=== PATIENT | female | born 1955 ===

== ENCOUNTER 2023-07-28 19:08 | Inpatient (IN) ==
[2023-07-28] MEDS ORDERED: Propofol 10 mg/ml 100 ML BTL 1,000 MG/100 ML BTL ONE (21:35)
[2023-07-28] MEDS: Propofol 10 mg/ml 100 ML BTL 1,000 MG/100 ML BTL IV SCH (21:40)
[2023-07-28 22:35] LABS: ABS Basophils 0.1 10^3/uL (0.0-0.1); ABS Eosinophils 0.1 10^3/uL (0.0-0.5); ABS Lymphocytes 1.3 10^3/uL (1.0-4.8); ABS Monocytes 0.4 10^3/uL (0.0-0.9); Eosinophil % 2.8 %; Hematocrit 25.9 % (35-45); Hemoglobin 9.1 g/dL (11.5-14.3); Mean Corpuscular Hemoglobin 35.7 pg (27-33); Mean Platelet Volume 9.2 fL (7.5-11.2); Nucleated Red Blood Cells % 0.1 %/100WBC (0.0-0.8); Platelet Count 169 10^3/uL (150-450); Red Blood Count 2.54 10^6/uL (3.63-4.92); Red Cell Distribution Width 13.5 % (12-17); White Blood Count 4.8 10^3/uL (3.8-11.8)
[2023-07-28 22:56] LABS: Albumin/Globulin Ratio 1.3 (1-3); Calcium 8.4 mg/dL (8.6-10.3); Creatinine, Serum 0.7 mg/dL (0.51-0.95); Globulin 2.4 g/dL (2-4); Magnesium 1.4 mg/dL (1.9-2.7); Potassium 2.8 mmol/L (3.5-5.0); Total Bilirubin 0.5 mg/dL (0.2-1.0); Total Protein 5.4 g/dL (6.4-8.9); eGFR CKD-EPI 94.7 (>60)
[2023-07-28 23:29] LABS: Resp Rate 16
[2023-07-28 23:30] LABS: PCO2 Arterial 30 mmHg (35-45); PO2 Arterial 85 mmHg (80-100)
[2023-07-28 23:41] LABS: TSH Ultra Thyroid Stim Horm 3.49 mcIU/mL (0.34-5.60)
[2023-07-29] MEDS ORDERED: Remdesivir 100 mg Vial 200 MG in NS 0.9% 250 ml 210 ML IV ONE (01:55)
[2023-07-29] MEDS ORDERED: Dextrose 50% Syringe 50 ml 25 GM/50 ML SYRINGE IV PUSH PRN (01:58)
[2023-07-29] MEDS ORDERED: Albuterol HFA INHALER 8 gm MDI INH PRN (02:02)
[2023-07-29] MEDS: Propofol 10 mg/ml 100 ML BTL 1,000 MG/100 ML BTL IV SCH ×6 (02:12→21:24)
[2023-07-29 03:22] LABS: Albumin 2.9 g/dL (3.2-5.2); Albumin/Globulin Ratio 1.2 (1-3); Calcium 8.3 mg/dL (8.6-10.3); Creatinine, Serum 0.71 mg/dL (0.51-0.95); Globulin 2.5 g/dL (2-4); Potassium 2.8 mmol/L (3.5-5.0); Total Bilirubin 0.4 mg/dL (0.2-1.0); Total Protein 5.4 g/dL (6.4-8.9); eGFR CKD-EPI 93.1 (>60)
[2023-07-29 03:28] LABS: INR 1.14 (0.83-1.13)
[2023-07-29 04:21] LABS: ABS Eosinophils 0.2 10^3/uL (0.0-0.5); ABS Lymphocytes 1.1 10^3/uL (1.0-4.8); ABS Monocytes 0.4 10^3/uL (0.0-0.9); Eosinophil % 3.4 %; Hematocrit 25.4 % (35-45); Hemoglobin 8.8 g/dL (11.5-14.3); Mean Corpuscular Hemoglobin 35.5 pg (27-33); Mean Corpuscular Hgb Conc 34.8 g/dL (31-36); Mean Corpuscular Volume 101.8 fL (80-97); Mean Platelet Volume 9.1 fL (7.5-11.2); Nucleated Red Blood Cells % 0.1 %/100WBC (0.0-0.8); Platelet Count 151 10^3/uL (150-450); Red Cell Distribution Width 13.5 % (12-17); White Blood Count 4.7 10^3/uL (3.8-11.8)
[2023-07-29 04:42] LABS: Albumin 2.8 g/dL (3.2-5.2); Albumin/Globulin Ratio 1.2 (1-3); Calcium 8.2 mg/dL (8.6-10.3); Creatinine, Serum 0.65 mg/dL (0.51-0.95); Globulin 2.3 g/dL (2-4); Magnesium 1.4 mg/dL (1.9-2.7); Potassium 2.8 mmol/L (3.5-5.0); Total Bilirubin 0.4 mg/dL (0.2-1.0); Total Protein 5.1 g/dL (6.4-8.9); eGFR CKD-EPI 96.4 (>60)
[2023-07-29] MEDS: Levothyroxine 100 MCG/5 ML VIAL IV SCH (05:17)
[2023-07-29] MEDS ORDERED: Heparin 5000 UNITS/ML 1 mL VIAL SUBCUT SCH (06:00)
[2023-07-29] MEDS: Mometasone/Formoter 100/5 MDI INH SCH ×2 (07:04→19:06)
[2023-07-29] MEDS ORDERED: Magnesium Sulfate 2 gm BAG 2 GM/50 ML BAG IVPB ONE (07:40)
[2023-07-29] MEDS: KCL 20 MEQ/100 ML IVPREMIX 20 MEQ/100 ML BAG IV SCH ×2 (08:14→10:22)
[2023-07-29] MEDS: levETIRAcetam IV 1,500 MG in NS 0.9% 100 ml BAG 100 ML IVPB SCH ×2 (08:57→20:07)
[2023-07-29] MEDS: Chlorhexidine MOUTHWASH 0.12% 15 ML UDC TOPICAL SCH ×5 (09:16→19:22)
[2023-07-29] MEDS: Furosemide 20 mg/2 ml IV VIAL IV SLOW PU SCH (09:16)
[2023-07-29] MEDS: Pantoprazole VIAL 40 MG VIAL IV SCH (09:17)
[2023-07-29] MEDS: Enoxaparin 80 MG/0.8 ML SYR SUBCUT SCH ×2 (09:17→20:07)
[2023-07-29] MEDS ORDERED: Lorazepam PYXIS KEY PRN (09:26)
[2023-07-29] MEDS ORDERED: LORazepam 2 mg VIAL 1 ml IV PUSH PRN (09:26)
[2023-07-29] MEDS ORDERED: LORazepam 2 mg VIAL 1 ml IV PUSH ONE (09:27)
[2023-07-29] MEDS ORDERED: LaCOSAMide VIAL 200 MG in NS 0.9% 50 ML 50 ML IV ONE (14:11)
[2023-07-30] MEDS: Propofol 10 mg/ml 100 ML BTL 1,000 MG/100 ML BTL IV SCH ×2 (02:04→05:33)
[2023-07-30] MEDS: Chlorhexidine MOUTHWASH 0.12% 15 ML UDC TOPICAL SCH ×4 (02:45→12:33)
[2023-07-30] MEDS: LaCOSAMide VIAL 100 MG in NS 0.9% 50 ML 50 ML IV SCH ×2 (03:13→14:36)
[2023-07-30 04:54] LABS: INR 1.17 (0.83-1.13)
[2023-07-30 04:58] LABS: Albumin 2.9 g/dL (3.2-5.2); Albumin/Globulin Ratio 1.2 (1-3); Calcium 8.2 mg/dL (8.6-10.3); Creatinine, Serum 0.79 mg/dL (0.51-0.95); Globulin 2.4 g/dL (2-4); Potassium 3.2 mmol/L (3.5-5.0); Total Bilirubin 0.3 mg/dL (0.2-1.0); Total Protein 5.3 g/dL (6.4-8.9); eGFR CKD-EPI 81.4 (>60)
[2023-07-30] MEDS: Levothyroxine 100 MCG/5 ML VIAL IV SCH (05:58)
[2023-07-30] MEDS: levETIRAcetam IV 1,500 MG in NS 0.9% 100 ml BAG 100 ML IVPB SCH ×2 (08:43→20:08)
[2023-07-30] MEDS: KCL 20 MEQ/100 ML IVPREMIX 20 MEQ/100 ML BAG IV SCH ×4 (08:46→17:47)
[2023-07-30] MEDS: Pantoprazole VIAL 40 MG VIAL IV SCH (08:49)
[2023-07-30] MEDS: Enoxaparin 80 MG/0.8 ML SYR SUBCUT SCH (08:49)
[2023-07-30] MEDS: Furosemide 20 mg/2 ml IV VIAL IV SLOW PU SCH (08:49)
[2023-07-30] MEDS: Mometasone/Formoter 100/5 MDI INH SCH (09:33)
[2023-07-30] MEDS: Remdesivir 100 mg Vial 100 MG in NS 0.9% 250 ml 230 ML IV SCH (20:45)
[2023-07-30 22:57] LABS: Calcium 8.5 mg/dL (8.6-10.3); Creatinine, Serum 0.72 mg/dL (0.51-0.95)
[2023-07-31] MEDS: LaCOSAMide VIAL 100 MG in NS 0.9% 50 ML 50 ML IV SCH ×2 (02:43→14:52)
[2023-07-31 05:22] LABS: ABS Eosinophils 0.1 10^3/uL (0.0-0.5); ABS Lymphocytes 0.9 10^3/uL (1.0-4.8); ABS Monocytes 0.5 10^3/uL (0.0-0.9); ABS Neutrophils 3.8 10^3/uL (1.5-7.6); Eosinophil % 2.5 %; Hematocrit 26.6 % (35-45); Hemoglobin 9.3 g/dL (11.5-14.3); Lymphocyte % 16.6 %; Mean Corpuscular Hemoglobin 36.1 pg (27-33); Mean Platelet Volume 9.1 fL (7.5-11.2); Platelet Count 173 10^3/uL (150-450); Red Blood Count 2.59 10^6/uL (3.63-4.92); Red Cell Distribution Width 13.9 % (12-17); White Blood Count 5.4 10^3/uL (3.8-11.8)
[2023-07-31] MEDS: Ondansetron 4 mg VIAL 2 MG/ML 2 ml VIAL IV PRN ×2 (05:50→16:45)
[2023-07-31 05:56] LABS: INR 1.16 (0.83-1.13)
[2023-07-31 05:59] LABS: Albumin/Globulin Ratio 1.1 (1-3); Calcium 8.4 mg/dL (8.6-10.3); Creatinine, Serum 0.66 mg/dL (0.51-0.95); Globulin 2.7 g/dL (2-4); Magnesium 1.5 mg/dL (1.9-2.7); Potassium 3.5 mmol/L (3.5-5.0); Total Bilirubin 0.5 mg/dL (0.2-1.0); Total Protein 5.7 g/dL (6.4-8.9); eGFR CKD-EPI 95.5 (>60)
[2023-07-31] MEDS: Levothyroxine 100 MCG/5 ML VIAL IV SCH (06:54)
[2023-07-31] MEDS ORDERED: Magnesium Sulfate 2 gm BAG 2 GM/50 ML BAG IVPB ONE (08:30)
[2023-07-31] MEDS: Furosemide 20 mg/2 ml IV VIAL IV SLOW PU SCH (09:01)
[2023-07-31] MEDS: Enoxaparin 40 MG/0.4 ML SYR SUBCUT SCH (09:01)
[2023-07-31] MEDS: levETIRAcetam IV 1,500 MG in NS 0.9% 100 ml BAG 100 ML IVPB SCH ×2 (09:02→19:53)
[2023-07-31] MEDS ORDERED: Dextrose 50% Syringe 50 ml 25 GM/50 ML SYRINGE IV PUSH PRN (20:09)
[2023-07-31] MEDS: Remdesivir 100 mg Vial 100 MG in NS 0.9% 250 ml 230 ML IV SCH (21:36)
[2023-08-01] MEDS: LaCOSAMide VIAL 100 MG in NS 0.9% 50 ML 50 ML IV SCH ×2 (01:40→16:27)
[2023-08-01 05:47] LABS: INR 1.22 (0.83-1.13)
[2023-08-01 06:07] LABS: Albumin 3.2 g/dL (3.2-5.2); Albumin/Globulin Ratio 1.1 (1-3); Calcium 8.9 mg/dL (8.6-10.3); Creatinine, Serum 0.65 mg/dL (0.51-0.95); Globulin 2.8 g/dL (2-4); Magnesium 1.8 mg/dL (1.9-2.7); Potassium 3.3 mmol/L (3.5-5.0); Total Bilirubin 0.4 mg/dL (0.2-1.0); eGFR CKD-EPI 95.8 (>60)
[2023-08-01] MEDS ORDERED: Magnesium Sulfate 2 gm BAG 2 GM/50 ML BAG IVPB ONE (08:28)
[2023-08-01] MEDS: levETIRAcetam IV 1,500 MG in NS 0.9% 100 ml BAG 100 ML IVPB SCH ×2 (09:12→22:25)
[2023-08-01] MEDS: Enoxaparin 40 MG/0.4 ML SYR SUBCUT SCH (09:16)
[2023-08-01] MEDS: Potassium Chlor 20 meq TAB.ER PO SCH ×3 (09:17→15:13)
[2023-08-01] MEDS ORDERED: Potassium EFFERVES 25 meq TAB PO ONE (15:30)
[2023-08-01] MEDS: Ondansetron 4 mg VIAL 2 MG/ML 2 ml VIAL IV PRN (18:09)
[2023-08-01] MEDS: Remdesivir 100 mg Vial 100 MG in NS 0.9% 250 ml 230 ML IV SCH (22:25)
[2023-08-02] MEDS: LaCOSAMide VIAL 100 MG in NS 0.9% 50 ML 50 ML IV SCH (03:14)
[2023-08-02 07:34] LABS: INR 1.39 (0.83-1.13)
[2023-08-02 08:16] LABS: Albumin/Globulin Ratio 1.3 (1-3); Calcium 8.8 mg/dL (8.6-10.3); Creatinine, Serum 0.63 mg/dL (0.51-0.95); Globulin 2.3 g/dL (2-4); Magnesium 1.8 mg/dL (1.9-2.7); Potassium 3.7 mmol/L (3.5-5.0); Total Bilirubin 0.5 mg/dL (0.2-1.0); Total Protein 5.3 g/dL (6.4-8.9); eGFR CKD-EPI 96.6 (>60)
[2023-08-02] MEDS ORDERED: Albuterol HFA INHALER 8 gm MDI INH PRN (09:34)
[2023-08-02] MEDS: CMC:Ranolazine 500 mg TAB ER (NF) PO SCH ×2 (10:26→22:06)
[2023-08-02] MEDS: Ondansetron 4 mg VIAL 2 MG/ML 2 ml VIAL IV PRN (17:34)
[2023-08-02] MEDS: levETIRAcetam IV 1,500 MG in NS 0.9% 100 ml BAG 100 ML IVPB SCH (19:49)
[2023-08-02] MEDS: Remdesivir 100 mg Vial 100 MG in NS 0.9% 250 ml 230 ML IV SCH (22:05)
[2023-08-03] MEDS: CMC:Ranolazine 500 mg TAB ER (NF) PO SCH ×2 (09:51→21:55)
[2023-08-03] MEDS: CMCS: SitaGLIPtin 100 mg TAB (NF) PO SCH (09:55)
[2023-08-03 11:06] LABS: INR 1.77 (0.83-1.13)
[2023-08-03 11:25] LABS: Albumin 3.3 g/dL (3.2-5.2); Albumin/Globulin Ratio 1.2 (1-3); Creatinine, Serum 0.74 mg/dL (0.51-0.95); Globulin 2.7 g/dL (2-4); Magnesium 1.5 mg/dL (1.9-2.7); Total Bilirubin 0.4 mg/dL (0.2-1.0); eGFR CKD-EPI 88.1 (>60)
[2023-08-03 12:00] LABS: Potassium 3.7 mmol/L (3.5-5.0)
[2023-08-03] MEDS ORDERED: Magnesium Sulfate 2 gm BAG 2 GM/50 ML BAG IVPB ONE (12:38)
[2023-08-03] MEDS: Ondansetron 4 mg VIAL 2 MG/ML 2 ml VIAL IV PRN (13:13)
[2023-08-03] MEDS ORDERED: Magnesium Sulfate IV 1GM/100ML 1 GM/100 ML BAG IV ONE (14:38)
[2023-08-04] MEDS: CMCS: SitaGLIPtin 100 mg TAB (NF) PO SCH (10:10)
[2023-08-04] MEDS: CMC:Ranolazine 500 mg TAB ER (NF) PO SCH (10:11)
[2023-08-04 12:10] VITALS: BP 116/70
== END 2023-08-04 13:35 | DRG 64 ==
LOC: ICU 21:44 → SUATTDRO 21:44 → MEDTELE 07-31 16:20
PROVIDERS: ADMIT Internal Medicine; ATTEND Internal Medicine